=== PATIENT | female | born 2000 | race Two or more races ===

== ENCOUNTER 2018-05-21 09:28 | Outpatient (CLI) | payer OTHER | END 2018-05-21 09:38 | disposition home or self-care (01) | LOC: SONOGRAMA 09:28 | DX: Z34.00 Encounter for supervision of normal first pregnancy, unspecified trimester (principal) ==

== ENCOUNTER 2018-05-30 04:33 | Outpatient (CLI) | payer OTHER | END 2018-05-30 12:09 | disposition home or self-care (01) | LOC: OBS/DEL 04:33 | DX: O26.892 Other specified pregnancy related conditions, second trimester (principal); R10.2 Pelvic and perineal pain; O60.02 Preterm labor without delivery, second trimester; Z34.02 Encounter for supervision of normal first pregnancy, second trimester ==

== ENCOUNTER 2018-08-17 13:00 | Inpatient (IN) | payer OTHER ==
[~2018-08-17] VITALS: Ht 165.1 cm; Wt 4.1 kg
[2018-09-09] MEDS ORDERED: PRENATAL TABLE1 EAC3 PO (13:49)
== END 2018-09-14 17:18 | DRG 786 ==
LOC: OB/GYN 09-07 13:00 → LDR 09-09 05:36 → OB/GYN 09-09 19:06
PROVIDERS: ADMIT Specialist
PROC: 4A1HXCZ Monitoring of Products of Conception, Cardiac Rate, External Approach (ICD-10-PCS; 2018-09-09)
PROC: 10D00Z1 Extraction of Products of Conception, Low, Open Approach (ICD-10-PCS; principal; 2018-09-09 16:00)
PROC: 8E0ZXY6 Isolation (ICD-10-PCS; 2018-09-11)
PROC: 4A033R1 Measurement of Arterial Saturation, Peripheral, Percutaneous Approach (ICD-10-PCS; 2018-09-11)
PROC: 3E0F7GC Introduction of Other Therapeutic Substance into Respiratory Tract, Via Natural or Artificial Opening (ICD-10-PCS; 2018-09-11)
DX: O33.5XX0 Maternal care for disproportion due to unusually large fetus, not applicable or unspecified (principal); B37.1 Pulmonary candidiasis; O86.89 Other specified puerperal infections; I97.191 Other postprocedural cardiac functional disturbances following other surgery; O99.53 Diseases of the respiratory system complicating the puerperium; O86.4 Pyrexia of unknown origin following delivery; O99.43 Diseases of the circulatory system complicating the puerperium; J11.1 Influenza due to unidentified influenza virus with other respiratory manifestations; Z3A.40 40 weeks gestation of pregnancy; Z37.0 Single live birth

== ENCOUNTER 2018-08-20 21:58 | Outpatient (CLI) | payer OTHER | END 2018-08-21 11:24 | disposition home or self-care (01) | LOC: OBS/DEL 21:58 | DX: O23.43 Unspecified infection of urinary tract in pregnancy, third trimester (principal); O99.013 Anemia complicating pregnancy, third trimester; D64.89 Other specified anemias; Z34.03 Encounter for supervision of normal first pregnancy, third trimester ==

== ENCOUNTER 2022-01-08 14:19 | Emergency (ER) | payer OTHER ==
[~2022-01-08] VITALS: Ht 160 cm; Wt 79.4 kg
[~2022-01-08 14:19] MED LIST: PRENATAL TABLE1 EAC3 PO
== END 2022-01-08 20:32 | disposition home or self-care (01) ==
LOC: ER 14:19
DX: J06.9 Acute upper respiratory infection, unspecified (principal); R50.9 Fever, unspecified; Z20.822 Contact with and (suspected) exposure to COVID-19

== ENCOUNTER 2022-03-28 15:19 | Outpatient (CLI) | payer OTHER | END 2022-03-28 17:06 | disposition home or self-care (01) | LOC: PRENATAL 15:19 | PROVIDERS: ATTEND Obstetrics & Gynecology Maternal & Fetal Medicine | DX: O35.0XX0 Maternal care for (suspected) central nervous system malformation in fetus, not applicable or unspecified (principal); O35.3XX0 Maternal care for (suspected) damage to fetus from viral disease in mother, not applicable or unspecified; O28.1 Abnormal biochemical finding on antenatal screening of mother; O34.219 Maternal care for unspecified type scar from previous cesarean delivery; Z3A.20 20 weeks gestation of pregnancy ==

== ENCOUNTER 2022-04-10 15:12 | Emergency (ER) | payer OTHER ==
[~2022-04-10] VITALS: Ht 165.1 cm; Wt 78.9 kg
[2022-04-10] MEDS ORDERED: ZITHROMAX500 MG PO (18:00)
[2022-04-10] MEDS ORDERED: GILTUSS EX200 MG/5 M PO (18:00)
== END 2022-04-10 18:17 | disposition home or self-care (01) ==
LOC: ER 15:12
DX: O98.512 Other viral diseases complicating pregnancy, second trimester (principal); U07.1 COVID-19; A08.39 Other viral enteritis; Z3A.24 24 weeks gestation of pregnancy

== ENCOUNTER 2022-04-11 14:35 | Outpatient (CLI) | payer OTHER ==
[~2022-04-11 14:35] MED LIST changes: +GILTUSS EX200 MG/5 M PO; +ZITHROMAX500 MG PO
== END 2022-04-11 15:10 | disposition home or self-care (01) ==
LOC: ASH CLINIC 14:35
PROVIDERS: ATTEND General Practice
DX: U07.1 COVID-19 (principal)

== ENCOUNTER 2022-05-12 15:02 | Outpatient (CLI) | payer OTHER | END 2022-05-12 17:17 | disposition home or self-care (01) | LOC: PRENATAL 15:02 | PROVIDERS: ATTEND Obstetrics & Gynecology Maternal & Fetal Medicine | DX: O26.849 Uterine size-date discrepancy, unspecified trimester (principal); O28.1 Abnormal biochemical finding on antenatal screening of mother; O34.219 Maternal care for unspecified type scar from previous cesarean delivery; O43.90 Unspecified placental disorder, unspecified trimester; Z3A.28 28 weeks gestation of pregnancy ==

== ENCOUNTER 2022-07-28 07:45 | Inpatient (IN) | payer OTHER ==
[~2022-07-28] VITALS: Ht 165.1 cm; Wt 88.9 kg
== END 2022-08-02 13:57 | disposition home or self-care (01) | DRG 788 ==
LOC: EDSTATUS 07:45 → LDR 07-30 18:06 → OB/GYN 07-30 18:06 → O/R 07-31 08:11 → OB/GYN 07-31 10:26
PROVIDERS: ADMIT Specialist; ATTEND Specialist
PROC: 4A1HXCZ Monitoring of Products of Conception, Cardiac Rate, External Approach (ICD-10-PCS; 2022-07-30)
PROC: 10D00Z1 Extraction of Products of Conception, Low, Open Approach (ICD-10-PCS; principal; 2022-07-30 19:30)
DX: O34.211 Maternal care for low transverse scar from previous cesarean delivery (principal); O99.824 Streptococcus B carrier state complicating childbirth; Z3A.40 40 weeks gestation of pregnancy; Z37.0 Single live birth; Z20.822 Contact with and (suspected) exposure to COVID-19

== ENCOUNTER 2024-02-25 02:01 | Emergency (ER) | payer OTHER ==
[~2024-02-25] VITALS: Ht 165.1 cm; Wt 78.0 kg
[2024-02-25 03:56] LABS: HEMATOCRIT 27.7 % (36.0-45.00); MEAN CELL VOLUME 86.5 fL (80.00-100.00); PLATELET COUNT 350 K/uL (150-450); RED BLOOD COUNT 3.21 M/uL (4.00-6.00); RED CELL DISTRIBUTION WIDTH 14.5 % (11.5-14.5)
[2024-02-25 04:01] LABS: HEMOGLOBIN 9.4 g/dL (12.0-15.00); MEAN CORPUSCULAR HEMOGLOBIN 29.2 pg (27.00-32.0)
[2024-02-25] MEDS ORDERED: KETOROLAC TROMETHAMINE 30 MG VIAL IV ONE (05:00)
[2024-02-25] MEDS ORDERED: KETOROLAC TROMETHAMINE 30 MG VIAL ONE (05:01)
[2024-02-25] MEDS ORDERED: INTEGRA CAPSUL1 EACH PO (08:56)
== END 2024-02-25 09:32 ==
LOC: ER 02:03
PROVIDERS: General Practice
DX: N93.8 Other specified abnormal uterine and vaginal bleeding (principal)

== ENCOUNTER 2024-02-27 11:24 | Inpatient (IN) | payer OTHER ==
[~2024-02-27] VITALS: Ht 165.1 cm; Wt 78.0 kg
[~2024-02-27 11:24] MED LIST changes: +INTEGRA CAPSUL1 EACH PO
--- NOTE | 2024-02-27 11:41 | NUR ---
PTE ALERTA Y ORIENTADA X3 MISMA REFIERE QUE SANGRADO VAGINAL CONTINUA, REFIERE MAREOS, DEBILIDAD. SE LE CLOVIS S/V Y SE UBICA
[2024-02-27] MEDS ORDERED: 0.9 % SODIUM CHLORIDE 500 ML IV SCH (12:15)
--- NOTE | 2024-02-27 12:21 | NUR ---
SE LE ORIENTA A PACIENTE SOBRE LA ORDEN MEDICA, REFIERE ENTENDER LAS MISMAS. SE CANALIZA Y SE LE COLOCA IVF'S, SE LE CLOVIS LAS MUETRAS Y SE NOTIFICA PARA REALIZA SONOGRAMA HEENA LA ORDEN MEDICA.
[2024-02-27 12:46] LABS: MEAN CELL VOLUME 86.5 fL (80.00-100.00); MEAN CORPUSCULAR HGB CONC 34.4 g/dl (32.0-36.0); PLATELET COUNT 293 K/uL (150-450); RED BLOOD COUNT 2.65 M/uL (4.00-6.00); RED CELL DISTRIBUTION WIDTH 14.3 % (11.5-14.5)
[2024-02-27 12:50] LABS: MEAN CORPUSCULAR HEMOGLOBIN 29.8 pg (27.00-32.0)
[2024-02-27 12:51] LABS: HEMATOCRIT 22.9 % (36.0-45.00); HEMOGLOBIN 7.9 g/dL (12.0-15.00)
[2024-02-27 13:18] LABS: CALCIUM 8.8 mg/dL (8.5-10.1); CREATININE SERUM 0.69 mg/dL (0.55-1.02); GFR 103.66; INR 0.97; PARTIAL THROMBOPLASTIN TIME 31.9 SECONDS (22.0-34.0); POTASSIUM 3.71 mEq/L (3.5-5.1); PROTHROMBIN TIME 10.2 SECONDS (9.0-11.5)
--- NOTE | 2024-02-27 15:44 | NUR ---
SE ORIENTA A PTE SOBRE ORDEN DE TRANSFUSION DE 2 UNIDADES DE PRBC'S, LA MISMA REFIERE ENTENDER. SE COLECTAN TUBOS PILOTOS Y SE COMPLETA REQUISICION PARA 2 UNIDADES DE PRBC'S LA CUAL SE LLEVA A LABORATORIO. PTE FIRMA CONSENTIMIENTO DE TRANSFUSION.
[2024-02-27] MEDS ORDERED: NAPROXEN 500 MG TABLET PO PRN (21:15)
[2024-02-28 10:29] LABS: HEMATOCRIT 27.1 % (36.0-45.00); HEMOGLOBIN 9.2 g/dL (12.0-15.00); MEAN CORPUSCULAR HEMOGLOBIN 29.6 pg (27.00-32.0); PLATELET COUNT 276 K/uL (150-450); RED BLOOD COUNT 3.11 M/uL (4.00-6.00); RED CELL DISTRIBUTION WIDTH 14.5 % (11.5-14.5)
[2024-02-29] MEDS ORDERED: SOD FERRIC GLUC COMPLX/SUCROSE 62.5 MG in 0.9 % SODIUM CHLORIDE 50 ML IV SCH (09:00)
[2024-02-29] MEDS ORDERED: POVIDONE-IODINE 118 ML BOTT TOP ONE (16:15)
[2024-02-29] MEDS ORDERED: CEFAZOLIN SODIUM 1,000 MG VIAL IV ONE (16:15)
[2024-02-29] MEDS ORDERED: OXYTOCIN 10 UNITS/ML VIAL IV ONE (16:15)
[2024-02-29] MEDS ORDERED: OXYTOCIN 20 UNITS/1000ML RL PIGGYBAG IV ONE (18:45)
[2024-02-29] MEDS ORDERED: RINGERS SOLUTION,LACTATED 1,000 ML IV SCH (22:15)
[2024-02-29] MEDS ORDERED: ACETAMINOPHEN 500 MG GEL..CAP PO PRN (23:30)
[2024-02-29] MEDS ORDERED: PROMETHAZINE HCL 50 MG/ML AMPUL IM STA (23:46)
[2024-03-01 00:16] LABS: HEMOGLOBIN 8.5 g/dL (12.0-15.00); MEAN CELL VOLUME 86.4 fL (80.00-100.00); MEAN CORPUSCULAR HEMOGLOBIN 30.5 pg (27.00-32.0); MEAN CORPUSCULAR HGB CONC 35.2 g/dl (32.0-36.0); PLATELET COUNT 313 K/uL (150-450); RED BLOOD COUNT 2.78 M/uL (4.00-6.00); RED CELL DISTRIBUTION WIDTH 14.1 % (11.5-14.5)
[2024-03-01] MEDS ORDERED: KETOROLAC TROMETHAMINE 60 MG VIAL IM STA (07:35)
[2024-03-01] MEDS ORDERED: IBUPROFEN800 MG PO (07:46)
[2024-03-01] MEDS ORDERED: FERROUS SULFAT325 M2 PO (07:46)
== END 2024-03-01 11:06 | disposition home or self-care (01) | DRG 770 ==
LOC: ER 11:25 → OB/GYN 18:38
PROVIDERS: General Practice; ADMIT Specialist; ATTEND Specialist
PROC: 30233N1 Transfusion of Nonautologous Red Blood Cells into Peripheral Vein, Percutaneous Approach (ICD-10-PCS; 2024-02-27)
PROC: BU4CZZZ Ultrasonography of Uterus and Ovaries (ICD-10-PCS; 2024-02-27)
PROC: 10D17ZZ Extraction of Products of Conception, Retained, Via Natural or Artificial Opening (ICD-10-PCS; principal; 2024-02-29 15:30)
DX: O03.4 Incomplete spontaneous abortion without complication (principal); D64.9 Anemia, unspecified; Z20.822 Contact with and (suspected) exposure to COVID-19

== ENCOUNTER 2024-03-03 18:43 | Emergency (ER) | payer OTHER ==
[~2024-03-03] VITALS: Ht 165.1 cm; Wt 78.0 kg
[~2024-03-03 18:43] MED LIST changes: +FERROUS SULFAT325 M2 PO; +IBUPROFEN800 MG PO
[2024-03-03] MEDS ORDERED: FAMOTIDINE/PF 20 MG in 0.9 % SODIUM CHLORIDE 8 ML IV PUSH STA (19:43)
[2024-03-03] MEDS ORDERED: BUTALB/ACETAMINOPHEN/CAFFEINE 1 TAB TABLET PO ONE (19:45)
[2024-03-03] MEDS ORDERED: ONDANSETRON HCL 2 MG/ML VIAL IV ONE (19:45)
[2024-03-03] MEDS ORDERED: DIPHENHYDRAMINE HCL 50 MG/ML VIAL 1ML IV ONE (19:45)
[2024-03-03] MEDS ORDERED: 0.9 % SODIUM CHLORIDE 1,000 ML IV SCH (19:45)
[2024-03-03 20:45] LABS: HEMATOCRIT 26.2 % (36.0-45.00); MEAN CELL VOLUME 87.2 fL (80.00-100.00); MEAN CORPUSCULAR HGB CONC 34.4 g/dl (32.0-36.0); PLATELET COUNT 398 K/uL (150-450); RED BLOOD COUNT 3.01 M/uL (4.00-6.00); RED CELL DISTRIBUTION WIDTH 14.2 % (11.5-14.5)
[2024-03-03 21:00] LABS: ALBUMIN 3.4 gm/dL (3.4-5.0); BILIRUBIN TOTAL 0.22 mg/dL (0.3-1.2); CALCIUM 9.2 mg/dL (8.5-10.1); CREATININE SERUM 0.72 mg/dL (0.55-1.02); GFR 98.69; GLOBULINA 4.2 G/DL (2.4-3.5); POTASSIUM 3.79 mEq/L (3.5-5.1); TOTAL PROTEIN 7.6 gm/dL (6.4-8.2)
[2024-03-03] MEDS ORDERED: BUTALB-ACETAMI1 EAC2 PO (22:01)
== END 2024-03-03 22:50 | disposition home or self-care (01) ==
LOC: ER 18:44
PROVIDERS: General Practice
DX: R51.9 Headache, unspecified (principal); Z20.822 Contact with and (suspected) exposure to COVID-19

== ENCOUNTER 2024-10-04 18:00 | Emergency (ER) | payer OTHER ==
[~2024-10-04] VITALS: Ht 165.1 cm; Wt 80.7 kg
[~2024-10-04 18:00] MED LIST changes: +BUTALB-ACETAMI1 EAC2 PO
[2024-10-04] MEDS ORDERED: ONDANSETRON HCL 2 MG/ML VIAL ONE (19:23)
[2024-10-04] MEDS ORDERED: FAMOTIDINE/PF 20 MG/2 ML VIAL ONE (19:23)
[2024-10-04] MEDS ORDERED: FAMOtidine 10 MG/ML (4ML VIAL) IV PUSH ONE (19:30)
[2024-10-04] MEDS ORDERED: ONDANSETRON HCL 2 MG/ML VIAL IM ONE (19:30)
[2024-10-04 19:43] LABS: HEMATOCRIT 39.1 % (36.0-45.00); HEMOGLOBIN 13.1 g/dL (12.0-15.00); MEAN CORPUSCULAR HEMOGLOBIN 28.5 pg (27.00-32.0); MEAN CORPUSCULAR HGB CONC 33.5 g/dl (32.0-36.0); PLATELET COUNT 332 K/uL (150-450); RED CELL DISTRIBUTION WIDTH 16.7 % (11.5-14.5)
[2024-10-04] MEDS ORDERED: 0.9 % SODIUM CHLORIDE 500 ML IV ONE (20:30)
[2024-10-04] MEDS ORDERED: BUTALB/ACETAMINOPHEN/CAFFEINE 1 TAB TABLET PO ONE (20:45)
[2024-10-04] MEDS ORDERED: PEPCID AC20 MG PO (23:03)
[2024-10-04] MEDS ORDERED: ZOFRAN8 MG PO (23:03)
== END 2024-10-04 23:40 | disposition home or self-care (01) ==
LOC: ER 18:03
PROVIDERS: General Practice
DX: K29.70 Gastritis, unspecified, without bleeding (principal); Z20.822 Contact with and (suspected) exposure to COVID-19
CPT/HCPCS: 36415; 96365; 96372; 99282; J2405; J3490; J7042